=== PATIENT | female | born 1990 | race Caucasian/White ===

== ENCOUNTER 2023-10-29 16:21 | Emergency (ER) | payer OTHER ==
[2023-10-29 16:49] VITALS: BP 120/91
--- NOTE | 2023-10-29 19:09 | ED Physician Documentation ---
History of Present Illness - Stated complaint Stated Complaint: MED REFILL - Chief complaint Chief Complaint: General - History obtained from History obtained from: Patient, Family - Additonal information Additional information: 33-year-old female presents to the emergency department today with supportive at bedside. She is tearful and reports that she has been trying to establish care with a new primary care provider as hers just left her clinic for refill on her Celexa. Patient reports that she has been on Celexa since 2021 without any difficulty. She says that she takes 20 mg once daily and she has been off of it now for about a week. Patient reports that she is starting to feel dizzy and nauseous and feels very emotionally labile. She denies any suicidal homicidal thoughts. PD PAST MEDICAL HISTORY - Past Medical History Past Medical History: Yes Psych: Depression, Anxiety - Past Surgical History Past Surgical History: Yes - Present Medications Home Medications: Ambulatory Orders Medication Instructions Recorded Confirmed Citalopram [CeleXA] 20 mg PO DAILY #30 tablet 10/29/23 - Allergies Allergies/Adverse Reactions: Allergies Allergy/AdvReac Type Severity Reaction Status Date / Time Penicillins Allergy Anaphylaxis Verified 10/29/23 16:47 - Social History Does the pt smoke?: No Smoking Status: Never smoker Does the pt drink ETOH?: No Does the pt have substance abuse?: No - Immunizations Immunizations are current?: Yes PD ED PE NORMAL - Vitals Vital signs reviewed: Yes - General General: Alert and oriented X 3, Other - HEENT HEENT: Atraumatic - Cardiac Cardiac: RRR, No murmur, Strong equal pulses - Respiratory Respiratory: No respiratory distress, Clear bilaterally - Neuro Neuro: Alert and oriented X 3, e commerce architect 2-12 intact, No motor deficit, No sensory deficit, Normal speech Eye Opening: Spontaneous Motor: Obeys Commands - Psych Psych: Other (Tearful affect, she is calm and cooperative denies any suicidal ideation) Results - Vitals Vitals: Vital Signs - 24 hr 10/29/23 10/29/23 16:42 19:54 Temperature 36.8 C Heart Rate 74 75 Respiratory 16 16 Rate Blood Pressure 120/91 H 120/91 H O2 Saturation 100 98 Oxygen O2 Source Room air PD Medical Decision Making - ED course ED course: Patient presents emergency department for Celexa refill. She also reports an nausea and dizziness. I believe that she is experiencing serotonin withdrawal syndrome. She was given 20 mg of Celexa here in the emergency department as well as a refill and given local primary care providers and encouraged her to call around to see if she is able to get in with a new primary care provider. Patient was quite anxious and tearful in the emergency department she was given a small dose of 0.5 mg p.o. Ativan as well as some Zofran for her nausea. I believe that her nausea and dizziness that she is experiencing is related to her serotonin withdrawal symptoms. She denies any dizziness or vision changes with ambulation no loss of consciousness and does not report the room to be spinning around her. She is neurologically intact no focal deficits. Heart sounds normal. No history of cardiac disease or abnormalities. She is safe for discharge she was told if she starts to experience any suicidal ideation or homicidal ideation to present back to the emergency department. Departure - Departure Disposition: 01 Home, Self Care Clinical Impression: Serotonin withdrawal syndrome Qualifiers: Encounter type: initial encounter Qualified Code(s): T43.205A - Adverse effect of unspecified antidepressants, initial encounter Condition: Good Instructions: SSRIs Prescriptions: Citalopram [CeleXA] 20 mg PO DAILY #30 tablet Comments: Thank you for trusting us with your care, I am so sorry that you are experiencing these symptoms and that you have not been able to follow up with a provider to get your medications refilled. I have sent a refill to [facility] in [place] for you. You have received your first dose tonight and is okay to take her second dose tomorrow morning. We have also given you a small dose of Ativan to help with anxiety that you are experiencing. Please come back to the emergency department if started to experience any suicidal homicidal ideation. I have attached a list of local primary care providers to establish care with if you are having difficulty finding a new one since yours recently left the [facility]. Wishing you the best navigating this I will. Forms: PCP List Discharge Date/Time: 10/29/23 19:54
[2023-10-29] MEDS ORDERED: LORazepam 0.5 MG TABLET PO STA (19:13)
[2023-10-29] MEDS ORDERED: CITALOPRAM 10 MG TABLET PO STA (19:13)
[2023-10-29] MEDS ORDERED: ONDANSETRON ODT 4 MG Prepack 2 TL STA (19:13)
[2023-10-29] MEDS ORDERED: ONDANSETRON ODT 4 MG TABLET TL STA (19:13)
[2023-10-29] MEDS ORDERED: CITALOPRAM 10 MG TABLET PO SCH (20:00)
[2023-10-29 20:01] VITALS: O2SAT 98
== END 2023-10-29 19:54 | disposition home or self-care (01) ==
LOC: ED 16:21
DX: Z76.0 Encounter for issue of repeat prescription (principal); R42 Dizziness and giddiness; R11.0 Nausea; T43.205A Adverse effect of unspecified antidepressants, initial encounter; F41.9 Anxiety disorder, unspecified
CPT/HCPCS: 99282; 99283; A9270; Q0162

== ENCOUNTER 2024-04-19 11:40 | Outpatient (CLI) | payer OTHER ==
--- NOTE | 2024-04-19 13:26 | XRAY Report ---
PROCEDURE: Foot 1-2V RT INDICATIONS: FOOT PAIN, RIGHT TECHNIQUE: 2 views of the foot were acquired. COMPARISON: None. FINDINGS: Bones: No fractures or dislocations. No suspicious bony lesions. Soft tissues: No tibiotalar joint effusion. Achilles tendon appears normal. IMPRESSION: No acute bony abnormality. Reviewed by: Shalom Merlos MD on 04/19/2024 1:24 PM PDT Approved by: Shalom Mrelos MD on 04/19/2024 1:24 PM PDT Station ID: [id number]
== END 2024-04-19 12:45 | disposition home or self-care (01) ==
LOC: DI.N 11:40
PROVIDERS: ATTEND Physician Assistant Medical
DX: M79.671 Pain in right foot (principal)